=== PATIENT | male | born 1960 ===

== ENCOUNTER → 2016-11-29 | Outpatient (CLI) | payer SELFPAY ==
[2016-11-29 11:12] LABS: BASOPHILS % (AUTO) 0.2 % (0-2); EOSINOPHILS % (AUTO) 0.2 % (0-4); HCT - HEMATOCRIT 26.7 % (41-53); HGB - HEMOGLOBIN 8.5 GM/DL (13.5-17.5); IMMATURE GRANULOCYTE # (AUTO) 0.01 T/MM3 (0.00-0.03); IMMATURE GRANULOCYTE % (AUTO) 0.2 % (0.0-0.5); LYMPHOCYTES % (AUTO) 16.2 % (23-45); MEAN CORPUSCULAR HGB 33.5 UUG (26-34); MEAN CORPUSCULAR HGB CONC(MCHC 31.8 GM/DL (31-37); MEAN CORPUSCULAR VOLUME 105.1 UM3 (80-100); MEAN PLATELET VOLUME 9.4 UM3 (9.4-12.4); MONOCYTES # (AUTO) 0.3 T/MM3 (0-0.8); MONOCYTES % (AUTO) 5.2 % (0-9.0); RED BLOOD COUNT 2.54 M/MM3 (4.50-5.90); WBC - WHITE BLOOD COUNT 6.4 T/MM3 (4.5-11.0)
[2016-11-29 11:24] LABS: ALBUMIN 3.7 G/DL (3.5-5.0); ALBUMIN/GLOBULIN RATIO 1.3 RATIO (1.1-2.2); ALKALINE PHOSPHATASE 105 U/L (38-126); ALT (SGPT) 46 U/L (21-72); ANION GAP 14 MEQ/L (5-15); AST (SGOT) 36 U/L (17-59); BUN/CREATININE RATIO 17 RATIO (6-26); CALCIUM 9.1 MG/DL (8.4-10.2); CHLORIDE 106 MEQ/L (98-107); CO2 - CARBON DIOXIDE 23 MEQ/L (22-30); CREATININE 0.7 MG/DL (0.8-1.5); GLOMERULAR FILTRATION RATE 116; GLUCOSE 150 MG/DL (75-110); MAGNESIUM 1.9 MG/DL (1.6-2.3); POTASSIUM 3.5 MEQ/L (3.6-5); SODIUM 143 MEQ/L (134-144); TOTAL PROTEIN 6.5 G/DL (6.3-8.2)
== END ==
LOC: LABN 11:07
PROVIDERS: ATTEND Internal Medicine Medical Oncology
DX: C7A.1 Malignant poorly differentiated neuroendocrine tumors (principal)
CPT/HCPCS: 80053; 83735; 85025